=== PATIENT | female | born 1945 | race Caucasian/White ===

== ENCOUNTER → 2018-02-03 13:14 | Outpatient (CLI) | payer BC, SELFPAY | PROVIDERS: PCP Internal Medicine; Visit Provider Internal Medicine | DX: M85.851 Other specified disorders of bone density and structure, right thigh (principal); Z82.62 Family history of osteoporosis | CPT/HCPCS: 77080 ==

== ENCOUNTER → 2019-03-28 15:09 | Outpatient (ROUT) | payer BC, SELFPAY ==
[2019-03-28 16:46] LABS: BUN Creatinine Ratio 23.3 (6-22); Blood Urea Nitrogen 21 mg/dL (7-17); Calcium 9.8 mg/dL (8.4-10.2); Carbon Dioxide 24 mmol/L (22-32); Chloride 107 mmol/L (98-107); Cholesterol 286 mg/dL (140-199); Estimated Glomerular Filt Rate > 60.0 mL/min (>60); Glucose 92 mg/dL (80-110); HDL Cholesterol 44 mg/dL (40-60); HEMOLYSIS < 15 (0-50); LDL Cholesterol Calculated 205 mg/dL (<100); Potassium 4.2 mmol/L (3.4-5.1); Sodium 140 mmol/L (137-145); Triglycerides 183 mg/dL (35-150)
[2019-03-28 16:51] LABS: TSH w/ Reflex to FT4 3.03 uIU/mL (0.47-4.68)
== END ==
PROVIDERS: PCP Internal Medicine; Visit Provider Internal Medicine
DX: E78.2 Mixed hyperlipidemia (principal); I48.91 Unspecified atrial fibrillation
CPT/HCPCS: 80048; 80061; 84443

== ENCOUNTER → 2020-04-02 14:43 | Outpatient (ROUT) | payer BC, SELFPAY ==
[2020-04-02 15:19] LABS: PTT Partial Thromboplastin Tim 29 SECONDS (26.4-36.2)
[2020-04-02 15:20] LABS: Add Manual Diff / Slide Review NO; Basophils Absolute Auto 0 /uL (0-100); Basophils Percent Auto 0.6 % (0-2); Eosinophils Absolute Auto 200 /uL (0-450); Eosinophils Percent Auto 2.9 % (2-4); Hemoglobin 13.8 g/dL (12.0-16.0); Lymphocytes Absolute Auto 1200 /uL (1100-4500); Lymphocytes Percent Auto 17.3 % (25-40); Mean Corpuscular HGB Conc 34.5 % (30-36); Mean Corpuscular Hemoglobin 33.9 PG (26-34); Mean Corpuscular Volume 98.3 fL (80-100); Monocytes Absolute Auto 600 /uL (0-900); Monocytes Percent Auto 9.4 % (3-14); Neutrophils Absolute Auto 4800 /uL (1500-7000); Neutrophils Percent Auto 69.8 % (50-75); Platelet Count 226 X10^3/uL (150-400); Red Blood Cell Count 4.07 X10^6/uL (4.0-5.2); Red Cell Distribution Width 12.5 % (11.6-14.8); White Blood Cell Count 6.9 X10^3/uL (4.5-11.0)
[2020-04-02 17:01] LABS: Alanine Aminotransferase 23 IU/L (<35); Albumin Globulin Ratio 1.4 (1.0-2.8); Alkaline Phosphatase 68 U/L (38-126); Aspartate Aminotransferase 29 IU/L (14-36); BUN Creatinine Ratio 26.2 (6-22); Bilirubin Total 0.7 mg/dL (0.2-1.3); Blood Urea Nitrogen 22 mg/dL (7-17); Calcium 9.5 mg/dL (8.4-10.2); Carbon Dioxide 29 mmol/L (22-32); Chloride 105 mmol/L (98-107); Cholesterol 234 mg/dL (140-199); Estimated Glomerular Filt Rate > 60.0 mL/min (>60); Globulin 2.9 g/dL (1.7-4.1); Glucose 83 mg/dL (80-110); HDL Cholesterol 45 mg/dL (40-60); HEMOLYSIS < 15 (0-50); LDL Cholesterol Calculated 149 mg/dL (<100); Potassium 4.7 mmol/L (3.4-5.1); Sodium 138 mmol/L (137-145); Total Protein 6.9 g/dL (6.3-8.2); Triglycerides 199 mg/dL (35-150)
[2020-04-02 17:20] LABS: TSH w/ Reflex to FT4 2.72 uIU/mL (0.47-4.68)
== END ==
PROVIDERS: PCP Internal Medicine; Visit Provider Internal Medicine
DX: I48.0 Paroxysmal atrial fibrillation (principal); E78.2 Mixed hyperlipidemia
CPT/HCPCS: 80053; 80061; 84443; 85025; 85610; 85730

== ENCOUNTER → 2020-05-26 14:03 | Outpatient (CLI) | payer BC, SELFPAY ==
[2020-05-26 14:21] LABS: COVID19 -Nasal RAPID POSITIVE (Negative)
== END ==
PROVIDERS: PCP Internal Medicine; Visit Provider Student in an Organized Health Care Education/Training Program
DX: Z20.822 Contact with and (suspected) exposure to COVID-19 (principal)
CPT/HCPCS: 87635

== ENCOUNTER 2021-07-07 14:29 | Emergency (ER) | payer BC, SELFPAY ==
[2021-07-07 14:58] VITALS: BP 149/67; PULSE 69; RESP 18; TEMP 36.6; O2SAT 98; BMI 26.9
--- NOTE | 2021-07-07 15:03 | DI.RAD.S_ITS ---
PROCEDURE: XR SHOULDER RT MIN 2V INDICATIONS: fall TECHNIQUE: 2 views of the shoulder were acquired. COMPARISON: None. FINDINGS: Bones: Diffuse osteopenia. There is a moderately comminuted, impacted fracture of the right proximal humerus at the level of the surgical neck. No definite intra-articular extension. Acromioclavicular interval and coracoclavicular intervals are maintained. Degenerative changes of the acromioclavicular joint. Soft tissues: No suspicious soft tissue calcifications. IMPRESSION: Moderately comminuted, impacted fracture of the right proximal humerus at the level of the surgical neck. Dictated by: Jarret Malone M.D. on 07/07/2021 at 16:23 Approved by: Jarret Malone M.D. on 07/07/2021 at 16:24
--- NOTE | 2021-07-07 15:04 | DI.RAD.S_ITS ---
PROCEDURE: XR KNEE RT 3V INDICATIONS: fall TECHNIQUE: 3 views of the knee were acquired. COMPARISON: None. FINDINGS: Bones: No fractures or dislocations. No suspicious bony lesions. Soft tissues: No joint effusion. No suspicious soft tissue calcifications. IMPRESSION: Right knee without acute fracture or dislocation. If there is persistent clinical concern for occult fracture given adequate mechanism of injury, consider repeat imaging in 10-14 days. Dictated by: Jarret Malone M.D. on 07/07/2021 at 16:26 Approved by: Jarret Malone M.D. on 07/07/2021 at 16:27
[2021-07-07 16:55] VITALS: PULSE 62; O2SAT 100
[2021-07-07 16:56] VITALS: BP 166/72; PULSE 62; O2SAT 100
[2021-07-07 17:00] VITALS: BP 163/74; PULSE 65; O2SAT 100
--- NOTE | 2021-07-07 17:24 | DI.CT.S_ITS ---
PROCEDURE: CT HEAD/BRAIN WO CON INDICATIONS: fall, head injury on thinners TECHNIQUE: Noncontrast 4.5 mm thick angled axial sections acquired from the foramen magnum to the vertex, with coronal and sagittal reformats. For radiation dose reduction, the following was used: automated exposure control, adjustment of mA and/or kV according to patient size. COMPARISON: None. FINDINGS: Image quality: Excellent. CSF spaces: Basal cisterns are patent. No extra-axial fluid collections. The ventricles are symmetric in size and shape. Brain: No intracranial bleeds or masses. There is cerebral volume loss for age, with resultant ventricular and sulcal prominence. There are periventricular and deep white matter chronic small vessel ischemic changes. There is intracranial internal carotid artery atherosclerosis. Skull and face: Mild right frontal scalp hematoma can be seen, as on series 2, image 21, without an associated fracture. Calvarium and visualized facial bones appear intact, without suspicious lesions. Sinuses: Visualized sinuses and mastoids are clear. IMPRESSION: Mild right frontal scalp hematoma, without an associated fracture. No acute intracranial hemorrhage is seen. No acute intracranial process is seen. Dictated by: Álvaro Mendoza M.D. on 07/07/2021 at 16:45 Approved by: Álvaro Mendoza M.D. on 07/07/2021 at 16:46
--- NOTE | 2021-07-07 17:46 | ED_ITS ---
HPI - Fall General Chief Complaint: Fall Stated Complaint: Fell and injured rt shoulder/head- on thinners Time Seen by Provider: 07/07/21 15:24 Source: patient and family Mode of arrival: Wheelchair History of Present Illness HPI Narrative: 76F nonsmoker with history of AFib on anticoagulation and osteopenia is incredibly hard of hearing and presents with family in the chief complaint of a ground level fall resulting in right shoulder injury. She was in her normal state of health and denies any dizziness, weakness or lightheadedness. She was at a local [facility] and admits that she was quite excited to show a friend some plants or suarez and misjudged her step which caused her to fall onto her right shoulder and bump her head. She denies any loss of consciousness, nausea, vomiting or neurologic symptoms such as blurred vision or extremity numbness, tingling or weakness. She has full recall of the event. She has extensive pain in her right shoulder with limited range of motion. She is activated as a modified trauma given fall, head injury on blood thinners as well as suspected injury and age greater than 65. Related Data Home Medications Medication Instructions Recorded Confirmed diltiazem HCl 60 mg tablet 60 mg PO DAILY PRN tab 07/08/21 07/08/21 ginkgo biloba leaf extract 120 mg 120 mg PO DAILY 07/08/21 07/08/21 capsule nitrofurantoin macrocrystal 100 mg 100 mg PO DAILY cap 07/08/21 07/08/21 capsule pravastatin 20 mg tablet 20 mg PO DAILY tab 07/08/21 07/08/21 warfarin 5 mg tablet 5 mg PO DAILY tab 07/08/21 07/08/21 Previous Rx's Medication Instructions Recorded mupirocin 2 % topical ointment 1 applic TOPICAL TID #30 g 01/26/20 triamcinolone acetonide 0.1 % 1 applic TOPICAL TID #80 g 01/26/20 topical cream ondansetron 4 mg disintegrating 4 mg PO TID-QID PRN #10 tab 07/07/21 tablet oxycodone 5 mg tablet 5 mg PO Q4-6H PRN #20 tab 07/07/21 diltiazem HCl 120 mg 120 mg PO DAILY #90 cap 07/08/21 capsule,extended release 24 hr Allergies Allergy/AdvReac Type Severity Reaction Status Date / Time Sulfa (Sulfonamide Allergy Unknown Verified 07/08/21 08:16 Antibiotics) [SULFA (SULFONAMIDE ANTIBIOTICS)] Review of Systems Review of Systems Narrative: GENERAL: See HPI HEENT: Denies sinus pain, ear pain, sore throat, difficulty swallowing, dizziness. RESPIRATORY: Denies dyspnea, cough, wheezing, hemoptysis, sputum. CARDIOVASCULAR: Denies chest pain, palpitations, orthopnea, edema, GASTROINTESTINAL: Denies nausea, vomiting, abdominal pain, diarrhea, constipation, melena. : Denies dysuria, frequency, incontinence, hematuria, urinary retention. MUSCULOSKELETAL: See HPI SKIN: Denies rash, skin lesions, or other NEUROLOGIC: Denies weakness, headache, numbness, change in speech, confusion, seizures, incoordination. PSYCHIATRIC: No concerning psychosocial issues. 12 point review of systems is negative except for those stated above Patient History Medical History Cataracts, bilateral (~2016) Chicken pox (~1949) Chronic anticoagulation Depression (~1965) Endometriosis (~1973) Hearing loss (~1996) Heavy menstrual period (~1958) Measles (~1949) Mixed hyperlipidemia Osteopenia Painful menstrual periods (~1958) Paroxysmal atrial fibrillation Seizures (~1996) Wears glasses Surgical History Anesthesia History of dilatation and curettage (~1973) History of partial hysterectomy Family History Father History of heart disease Dementia Mother Diabetes mellitus Hyperlipidemia Hypertension Dementia Arthritis Sister GERD (gastroesophageal reflux disease) Diabetes mellitus History of heart disease Hypertension S/P ankle joint replacement S/P knee replacement Grandfather Stroke Grandmother Diabetes mellitus Grandfather History of heart disease Grandmother Stroke Dementia Blind Family/Other Osteoporosis Autoimmune disease Rheumatoid arthritis Fibromyalgia Lupus Social History details: (Dior) Smoking Status: Never smoker Smoking Status: Never smoker Substance Use Type: does not use Exam Narrative Exam Narrative: GENERAL: [76] year old patient appears stated age. Well-developed patient, in mild distress. GCS 15 HEAD: Hematoma on right forehead, no evidence of external bleeding or wound which will require repair, no evidence of depressed skull fracture EYES: Pupils equal round and reactive. Extraocular motions intact. No scleral icterus. No injection or drainage. ENT: Nose without bleeding, purulent drainage. Throat without erythema, tonsillar hypertrophy or exudate. Airway patent. NECK: Trachea midline. Non tender CARDIOVASCULAR: Regular rate and rhythm without murmurs, gallops, or rubs. RESPIRATORY: Clear to auscultation. Breath sounds equal bilaterally. No wheezes, rales, or rhonchi. GASTROINTESTINAL: Abdomen soft, non-tender, nondistended. EXTREMITIES: Pain and swelling at the right shoulder with deformity consistent with fracture, closed, isolated and neurovascularly intact, no evidence of wrist drop BACK: Nontender without deformity or crepitance. No flank tenderness. NEURO: AOx3. SKIN: No rash or erythema of visible areas Initial Vital Signs Initial Vital Signs: Vital Signs Temperature 97.9 F 07/07/21 14:58 Pulse Rate 69 07/07/21 14:58 Respiratory Rate 18 07/07/21 14:58 Blood Pressure 149/67 H 07/07/21 14:58 Pulse Oximetry 98 07/07/21 14:58 Procedures Orthopedic Splinting/Casting Injury #1: Side: right Upper Extremity Injury Location: shoulder Upper Extremity Immobilizer: sling/shoulder immobilizer and sugar tong splint (premade Coaptation) Course Orders Ordered: Discontinued Medications Hydrocodone Bitart/Acetaminophen (Hydrocodone/Acet 5/325 Tablet) 1 tab PO NOW ONE Stop: 07/07/21 17:59 Last Admin: 07/07/21 18:03 Dose: 1 tab Documented by: IRIS Consultations Consultation #1: Discussed with on-call orthopedist, images have been reviewed, recommends splint, sling, pain control and follow-up Vital Signs Vital signs: Vital Signs - 8 hr 07/07/21 14:58 07/07/21 16:55 07/07/21 16:56 Temperature 97.9 F Pulse Rate 69 62 62 Respiratory Rate 18 Blood Pressure 149/67 H 166/72 H Pulse Oximetry 98 100 100 07/07/21 17:00 07/07/21 18:33 Temperature Pulse Rate 65 62 Respiratory Rate Blood Pressure 163/74 H Pulse Oximetry 100 100 MDM - Fall Imaging Data CT scan - head: Radiologist's Impression: [address] [address] [address] Scan Report Signed Patient: Dior Ji MR#: [id number] : 1945 Acct:[id number] Age/Sex: 76 / F Date of Service: 07/07/21 Loc: ED Accession Number: [id number] ?? Procedure: CT head/brain wo con Ordering Provider: Ajit Babcock D.O. PROCEDURE:? CT HEAD/BRAIN WO CON ? INDICATIONS:? fall, head injury on thinners ? TECHNIQUE:? Noncontrast 4.5 mm thick angled axial sections acquired from the foramen magnum to the vertex, with coronal and sagittal reformats.? For radiation dose reduction, the following was used:? automated exposure control, adjustment of mA and/or kV according to patient size.? ? COMPARISON:? None. ? FINDINGS:? Image quality:? Excellent.? ? CSF spaces:? Basal cisterns are patent.? No extra-axial fluid collections.? The ventricles are symmetric in size and shape.? ? Brain:? No intracranial bleeds or masses.? There is cerebral volume loss for age, with resultant ventricular and sulcal prominence.? There are periventricular and deep white matter chronic small vessel ischemic changes.? There is intracranial internal carotid artery atherosclerosis.? ? Skull and face:? Mild right frontal scalp hematoma can be seen, as on series 2, image 21, without an associated fracture.? Calvarium and visualized facial bones appear intact, without suspicious lesions.? ? Sinuses:? Visualized sinuses and mastoids are clear.? ? IMPRESSION:? Mild right frontal scalp hematoma, without an associated fracture.? ? No acute intracranial hemorrhage is seen.? ? No acute intracranial process is seen.? ? ? Dictated by: Álvaro Mendoza M.D. on 07/07/2021 at 16:45 ? ? Approved by: Álvaro Mendoza M.D. on 07/07/2021 at 16:46 ? Extremity x-ray #1: Radiologist's Impression: Launch?[address] [address] XRay Report Signed Patient: Dior Ji MR#: [id number] : 1945 Acct:[id number] Age/Sex: 76 / F Date of Service: 07/07/21 Loc: ED Accession Number: [id number] ?? Procedure: XR shoulder RT min 2V Ordering Provider: Ajit Babcock D.O. PROCEDURE:? XR SHOULDER RT MIN 2V ? INDICATIONS:? fall ? TECHNIQUE:? 2 views of the shoulder were acquired.? ? COMPARISON:? None. ? FINDINGS:? ? Bones:? Diffuse osteopenia.? There is a moderately comminuted, impacted fracture of the right proximal humerus at the level of the surgical neck.? No definite intra- articular extension.? Acromioclavicular interval and coracoclavicular intervals are maintained.? Degenerative changes of the acromioclavicular joint. ? Soft tissues:? No suspicious soft tissue calcifications.? ? IMPRESSION:? Moderately comminuted, impacted fracture of the right proximal humerus at the level of the surgical neck. ? ? Dictated by: Jarret Malone M.D. on 07/07/2021 at 16:23 ? ? Approved by: Jarret Malone M.D. on 07/07/2021 at 16:24 ? Extremity x-ray #2: Radiologist's Impression: [place] [address] XRay Report Signed Patient: Dior Ji MR#: [id number] : 1945 Acct:[id number] Age/Sex: 76 / F Date of Service: 07/07/21 Loc: ED Accession Number: [id number] ?? Procedure: XR knee RT 3V Ordering Provider: Ajit Babcock D.O. PROCEDURE:? XR KNEE RT 3V ? INDICATIONS:? fall ? TECHNIQUE:? 3 views of the knee were acquired.? ? COMPARISON:? None. ? FINDINGS:? ? Bones:? No fractures or dislocations.? No suspicious bony lesions.? ? Soft tissues:? No joint effusion.? No suspicious soft tissue calcifications.? ? ? IMPRESSION:? Right knee without acute fracture or dislocation. ? If there is persistent clinical concern for occult fracture given adequate mechanism of injury, consider repeat imaging in 10-14 days. ? ? Dictated by: Jarret Malone M.D. on 07/07/2021 at 16:26 ? ? Approved by: Jarret Malone M.D. on 07/07/2021 at 16:27 ? Discharge Plan Departure Patient Disposition: Home Clinical Impression: Fracture of proximal end of humerus Qualifiers: Encounter type: subsequent encounter Fracture type: closed Fracture morphology: other fracture Fracture alignment: displaced Laterality: right Fracture healing: with routine healing Qualified Code(s): S42.291D - Other displaced fracture of upper end of right humerus, subsequent encounter for fracture with routine healing Contusion of knee Qualifiers: Encounter type: initial encounter Laterality: right Qualified Code(s): S80.01XA - Contusion of right knee, initial encounter Contusion of scalp Qualifiers: Encounter type: initial encounter Qualified Code(s): S00.03XA - Contusion of scalp, initial encounter Instructions: How to Prevent Falls Activity Restrictions/Additional Instructions: *You have been diagnosed with [comminuted right proximal humerus fracture. As we discussed this typically is not a surgical injury. Also, your head CT is unremarkable and your knee x-ray shows no evidence of fracture or dislocation *What to do: *Please continue to take your regular medications as directed. [ x] New medication prescriptions sent to your pharmacy: [[facility] ] [ ] New medication written as a paper prescription [x] Tylenol and occasional Motrin for pain *Please follow up with [ Renetta] of [facility] in 2-3 days, call for an appointment. Let them know you were seen in the Emergency Department and that we ask that you be seen in follow up. We will electronically transmit a record of today's note if your PCP is in our system *Return to Emergency Department if you should have any new, worsening or concerning symptoms, such as [worsening pain, significant swelling, cold extremities, numbness, tingling, weakness or other bothersome symptoms Splint Care: Keep splint clean and dry. Elevated affected body part to decrease swelling. OK to use ice pack on the affected body part. Use for 15-20 minutes each time, for 5-6x per day. If you develop worsening pain, numbness, tingling, discoloration of the affected body part, loosen the splint by loosening the HELGA wrap, and either see your doctor for an urgent re-assessment, or return to the Emergency Department. Return to the Emergency Department for any new or worsening symptoms. You have been prescribed a short course of narcotic medications. These are potentially dangerous and addictive medications that should be used carefully. While on these medications you cannot drive or operate heavy machinery. Additionally, you cannot sign legal documents or perform any duties such as this. Many people get constipated on narcotic medications so it would be advisable to discuss stool softeners with the pharmacist when you picking supervisor your p rescription. Please understand that we cannot provide further refills of narcotics or controlled substances through the ED and your pain management will need to be through your Primary Care Provider Prescriptions: New ondansetron 4 mg tablet,disintegrating 4 mg PO TID-QID PRN (Reason: nausea and vomiting) Qty: 10 0RF oxycodone 5 mg tablet 5 mg PO Q4-6H PRN (Reason: pain) Qty: 20 0RF No Action mupirocin 2 % ointment 1 applic topical TID Qty: 30 0RF triamcinolone acetonide 0.1 % cream 1 applic topical TID Qty: 80 0RF pravastatin 20 mg tablet 20 mg PO DAILY 0RF diltiazem HCl 60 mg tablet 60 mg PO DAILY PRN0RF warfarin 5 mg tablet 5 mg PO DAILY 0RF Rx Instructions: 7.5 mg on Tuesday and 5 mg all other days. nitrofurantoin macrocrystal 100 mg capsule 100 mg PO DAILY 0RF Label Comments: take 1 capsule by mouth once daily ginkgo biloba leaf extract 120 mg capsule 120 mg PO DAILY 0RF Rx Instructions: give with meal/snack diltiazem HCl 120 mg capsule,extended release 24hr 120 mg PO DAILY Qty: 90 3RF Referrals: Johnathan Maddox MD [Primary Care Provider] - Chang Jackson MD [Physician] -
[2021-07-07] MEDS: HYDROCODONE/ACET 5/325 TABLET 1 TAB PO (18:03)
[2021-07-07 18:33] VITALS: PULSE 62; O2SAT 100
== END 2021-07-07 19:27 | disposition home or self-care (01) ==
PROVIDERS: Emergency Provider Emergency Medicine; PCP Internal Medicine
DX: S42.291A Other displaced fracture of upper end of right humerus, initial encounter for closed fracture (principal); S80.01XA Contusion of right knee, initial encounter; S00.03XA Contusion of scalp, initial encounter; S09.90XA Unspecified injury of head, initial encounter; Z79.01 Long term (current) use of anticoagulants; W18.30XA Fall on same level, unspecified, initial encounter
CPT/HCPCS: 70450; 73030; 73562; 99284

== ENCOUNTER → 2021-07-08 09:39 | Outpatient (CLI) | payer BC, SELFPAY ==
[2021-07-08 10:51] LABS: Mean Corpuscular Hemoglobin 34.5 PG (26-34); Mean Corpuscular Volume 95.8 fL (80-100); Platelet Count 227 X10^3/uL (150-400); Red Blood Cell Count 4.07 X10^6/uL (4.0-5.2); Red Cell Distribution Width 12.8 % (11.6-14.8); White Blood Cell Count 9.6 X10^3/uL (4.5-11.0)
[2021-07-08 11:19] LABS: Alanine Aminotransferase 21 IU/L (<35); Albumin 4.4 g/dL (3.5-5.0); Albumin Globulin Ratio 1.6 (1.0-2.8); Alkaline Phosphatase 65 U/L (38-126); Aspartate Aminotransferase 32 IU/L (14-36); BUN Creatinine Ratio 23.8 (6-22); Bilirubin Total 1.1 mg/dL (0.2-1.3); Blood Urea Nitrogen 25 mg/dL (7-17); Calcium 9.5 mg/dL (8.4-10.2); Carbon Dioxide 26 mmol/L (22-32); Chloride 104 mmol/L (98-107); Cholesterol 231 mg/dL (140-199); Estimated Glomerular Filt Rate 55 mL/min (>60); Globulin 2.7 g/dL (1.7-4.1); Glucose 95 mg/dL (80-110); HDL Cholesterol 61 mg/dL (40-60); HEMOLYSIS < 15 (0-50); LDL Cholesterol Calculated 147 mg/dL (<100); Sodium 137 mmol/L (137-145); Total Protein 7.1 g/dL (6.3-8.2); Triglycerides 114 mg/dL (35-150)
[2021-07-08 11:50] LABS: TSH w/ Reflex to FT4 2.27 uIU/mL (0.47-4.68)
== END ==
PROVIDERS: PCP Internal Medicine; Referring Provider Internal Medicine; Visit Provider Internal Medicine
DX: E78.2 Mixed hyperlipidemia (principal); I48.0 Paroxysmal atrial fibrillation
CPT/HCPCS: 36415; 80053; 80061; 84443; 85027

== ENCOUNTER 2021-07-13 17:48 | Emergency (ER) | payer BC, SELFPAY ==
[2021-07-13 18:39] VITALS: BP 144/65; PULSE 78; RESP 18; TEMP 37; O2SAT 100; BMI 26.5
--- NOTE | 2021-07-13 21:02 | ED.UPPEXIN ---
HPI - Extremity Injury (Upper) General Chief Complaint: Extremity Injury, Upper Stated Complaint: BROKEN RIGHT ARM SWELLING PAIN Time Seen by Provider: 07/13/21 18:11 Source: patient and family Mode of arrival: Wheelchair History of Present Illness HPI narrative: 76F nonsmoker with history of AFib on anticoagulation and osteopenia is incredibly hard of hearing and presents with family in the chief complaint of swelling in her right hand, she had been told after recent visit for a fall resulting in a proximal humerus fracture to present if swelling is noted. There has been some readjustment of her signing and on arrival her hand is noted to be swollen and hand is exposed from the sling which is supporting the arm only at the distal forearm, allowing a bit of wrist drop. She denies any significant pain, fever chills, she denies any numbness, tingling or weakness in her fingers. Related Data Home Medications Medication Instructions Recorded Confirmed diltiazem HCl 60 mg tablet 60 mg PO DAILY PRN tab 07/08/21 07/08/21 ginkgo biloba leaf extract 120 mg 120 mg PO DAILY 07/08/21 07/08/21 capsule nitrofurantoin macrocrystal 100 mg 100 mg PO DAILY cap 07/08/21 07/08/21 capsule pravastatin 20 mg tablet 20 mg PO DAILY tab 07/08/21 07/08/21 warfarin 5 mg tablet 5 mg PO DAILY tab 07/08/21 07/08/21 Previous Rx's Medication Instructions Recorded mupirocin 2 % topical ointment 1 applic TOPICAL TID #30 g 01/26/20 triamcinolone acetonide 0.1 % 1 applic TOPICAL TID #80 g 01/26/20 topical cream ondansetron 4 mg disintegrating 4 mg PO TID-QID PRN #10 tab 07/07/21 tablet oxycodone 5 mg tablet 5 mg PO Q4-6H PRN #20 tab 07/07/21 diltiazem HCl 120 mg 120 mg PO DAILY #90 cap 07/08/21 capsule,extended release 24 hr Allergies Allergy/AdvReac Type Severity Reaction Status Date / Time Sulfa (Sulfonamide Allergy Unknown Verified 07/13/21 18:42 Antibiotics) [SULFA (SULFONAMIDE ANTIBIOTICS)] Review of Systems Review of Systems Narrative: GENERAL: Denies chills, fatigue, malaise, fever, sweats. HEENT: Denies sinus pain, ear pain, sore throat, difficulty swallowing, dizziness. RESPIRATORY: Denies dyspnea, cough, wheezing, hemoptysis, sputum. CARDIOVASCULAR: Denies chest pain, palpitations, orthopnea, edema, GASTROINTESTINAL: Denies nausea, vomiting, abdominal pain, diarrhea, constipation, melena. : Denies dysuria, frequency, incontinence, hematuria, urinary retention. MUSCULOSKELETAL: See HPI SKIN: Denies rash, skin lesions, or other NEUROLOGIC: Denies weakness, headache, numbness, change in speech, confusion, seizures, incoordination. PSYCHIATRIC: No concerning psychosocial issues. 12 point review of systems is negative except for those stated above Patient History Medical History Cataracts, bilateral (~2016) Chicken pox (~1949) Chronic anticoagulation Depression (~1965) Endometriosis (~1973) Hearing loss (~1996) Heavy menstrual period (~1958) Measles (~1949) Mixed hyperlipidemia Osteopenia Painful menstrual periods (~1958) Paroxysmal atrial fibrillation Seizures (~1996) Wears glasses Surgical History Anesthesia History of dilatation and curettage (~1973) History of partial hysterectomy Family History Father History of heart disease Dementia Mother Diabetes mellitus Hyperlipidemia Hypertension Dementia Arthritis Sister GERD (gastroesophageal reflux disease) Diabetes mellitus History of heart disease Hypertension S/P ankle joint replacement S/P knee replacement Grandfather Stroke Grandmother Diabetes mellitus Grandfather History of heart disease Grandmother Stroke Dementia Blind Family/Other Osteoporosis Autoimmune disease Rheumatoid arthritis Fibromyalgia Lupus Social History details: (Dior) Smoking Status: Never smoker Smoking Status: Never smoker Substance Use Type: does not use Exam Narrative Exam Narrative: GENERAL: [76] year old patient appears stated age. Well-developed patient, in mild distress. HEAD: Atraumatic. Normocephalic. EYES: Pupils equal round and reactive. Extraocular motions intact. No scleral icterus. No injection or drainage. ENT: Nose without bleeding, purulent drainage. Throat without erythema, tonsillar hypertrophy or exudate. Airway patent. NECK: Trachea midline. Non tender CARDIOVASCULAR: Regular rate and rhythm without murmurs, gallops, or rubs. RESPIRATORY: Clear to auscultation. Breath sounds equal bilaterally. No wheezes, rales, or rhonchi. GASTROINTESTINAL: Abdomen soft, non-tender, nondistended. EXTREMITIES: There is some swelling of the hand and forearm without discoloration, tenderness, warmth or induration, most consistent with dependent edema. Full strength with wrist extension, sensation intact, no evidence of wrist drop or vascular occlusion. Pain on palpation of right shoulder BACK: Nontender without deformity or crepitance. No flank tenderness. NEURO: AOx3. SKIN: No rash or erythema of visible areas Initial Vital Signs Initial Vital Signs: Vital Signs Temperature 98.6 F 07/13/21 18:39 Pulse Rate 78 07/13/21 18:39 Respiratory Rate 18 07/13/21 18:39 Blood Pressure 144/65 H 07/13/21 18:39 Pulse Oximetry 100 07/13/21 18:39 Procedures Orthopedic Splinting/Casting Injury #1: Side: right Upper Extremity Injury Location: shoulder Upper Extremity Immobilizer: sling/shoulder immobilizer Post splinting neuro exam: intact Post splinting vascular exam: intact Placed by: Nursing Course Course Course Narrative: Nursing swabbed out sling to a larger size to better accommodate Vital Signs Vital signs: Vital Signs - 8 hr 07/13/21 18:39 Temperature 98.6 F Pulse Rate 78 Respiratory Rate 18 Blood Pressure 144/65 H Pulse Oximetry 100 MDM - Extremity Injury (Upper) MDM Narrative Medical decision making narrative: Patient with known recent proximal humerus fracture presents with painless swelling of her right hand, she is following discharge instructions and return precautions. There was some miscommunication at time of discharge and they have yet to follow-up with orthopedics because they were told this was unlikely to be surgical case. I reiterated that follow-up is important. She does have swelling in her hand but has not had appropriate positioning, DVT or infection considered but thought unlikely given lack of pain, redness or warmth. Sensation, strength and cap refill are intact. Splint Tom eyes, return precautions given and questions answered to their apparent satisfaction Discharge Plan Departure Patient Disposition: Home Clinical Impression: Dependent edema, Fracture of proximal end of humerus Instructions: Edema Activity Restrictions/Additional Instructions: *You have been diagnosed with [swelling and right hand due to dependent edema from fracture, this is likely due to a poorly fitting sling, we have adjusted this 4 year *What to do: *Please continue to take your regular medications as directed. *Please follow up with Dr. Jackson at [facility] in 2-3 days, call for an appointment. Let them know you were seen in the Emergency Department and that we ask that you be seen in follow up. We will electronically transmit a record of today's note *Return to Emergency Department if you should have any new, worsening or concerning symptoms Prescriptions: No Action mupirocin 2 % ointment 1 applic topical TID Qty: 30 0RF triamcinolone acetonide 0.1 % cream 1 applic topical TID Qty: 80 0RF pravastatin 20 mg tablet 20 mg PO DAILY 0RF diltiazem HCl 60 mg tablet 60 mg PO DAILY PRN0RF warfarin 5 mg tablet 5 mg PO DAILY 0RF Rx Instructions: 7.5 mg on Tuesday and 5 mg all other days. nitrofurantoin macrocrystal 100 mg capsule 100 mg PO DAILY 0RF Label Comments: take 1 capsule by mouth once daily ginkgo biloba leaf extract 120 mg capsule 120 mg PO DAILY 0RF Rx Instructions: give with meal/snack diltiazem HCl 120 mg capsule,extended release 24hr 120 mg PO DAILY Qty: 90 3RF ondansetron 4 mg tablet,disintegrating 4 mg PO TID-QID PRN (Reason: nausea and vomiting) Qty: 10 0RF oxycodone 5 mg tablet 5 mg PO Q4-6H PRN (Reason: pain) Qty: 20 0RF Referrals: Johnathan Maddox MD [Primary Care Provider] - Chang Jackson MD [Physician] - Visit Report Forms: Patient Portal/API
== END 2021-07-13 21:50 | disposition home or self-care (01) ==
PROVIDERS: Emergency Provider Emergency Medicine; PCP Internal Medicine
DX: R60.0 Localized edema (principal); S42.201A Unspecified fracture of upper end of right humerus, initial encounter for closed fracture; W19.XXXA Unspecified fall, initial encounter
CPT/HCPCS: 99281; 99282

== ENCOUNTER → 2022-01-21 10:57 | Outpatient (CLI) | payer BC, SELFPAY ==
[2022-01-21 12:17] LABS: Hematocrit 40.4 % (36-46); Hemoglobin 14.1 g/dL (12.0-16.0); Mean Corpuscular HGB Conc 34.9 % (30-36); Mean Corpuscular Hemoglobin 33.4 PG (26-34); Mean Corpuscular Volume 95.7 fL (80-100); Platelet Count 236 X10^3/uL (150-400); Red Blood Cell Count 4.22 X10^6/uL (4.0-5.2); Red Cell Distribution Width 12.9 % (11.6-14.8); White Blood Cell Count 6.8 X10^3/uL (4.5-11.0)
[2022-01-21 12:54] LABS: Alanine Aminotransferase 29 IU/L (<35); Albumin 4.3 g/dL (3.5-5.0); Albumin Globulin Ratio 1.5 (1.0-2.8); Alkaline Phosphatase 71 U/L (38-126); Aspartate Aminotransferase 32 IU/L (14-36); Bilirubin Total 0.8 mg/dL (0.2-1.3); Blood Urea Nitrogen 18 mg/dL (7-17); Calcium 9.8 mg/dL (8.4-10.2); Carbon Dioxide 29 mmol/L (22-32); Chloride 104 mmol/L (98-107); Estimated Glomerular Filt Rate > 60 mL/min (>60); Globulin 2.8 g/dL (1.7-4.1); Glucose 89 mg/dL (80-110); HEMOLYSIS < 15 (0-50); Potassium 4.9 mmol/L (3.4-5.1); Sodium 141 mmol/L (137-145); Total Protein 7.1 g/dL (6.3-8.2)
== END ==
PROVIDERS: PCP Internal Medicine; Referring Provider Internal Medicine; Visit Provider Internal Medicine
DX: I48.0 Paroxysmal atrial fibrillation (principal); Z79.01 Long term (current) use of anticoagulants
CPT/HCPCS: 36415; 80053; 85027

== ENCOUNTER → 2022-02-15 10:35 | Outpatient (CLI) | payer BC, SELFPAY ==
[2022-02-16 12:13] LABS: Fecal Immunochemical Test Negative (Negative)
== END ==
PROVIDERS: PCP Internal Medicine; Referring Provider Internal Medicine; Visit Provider Internal Medicine
DX: Z12.11 Encounter for screening for malignant neoplasm of colon (principal)
CPT/HCPCS: 82274

== ENCOUNTER → 2023-01-24 09:13 | Outpatient (CLI) | payer BC, SELFPAY ==
[2023-01-24 10:49] LABS: Hematocrit 43.1 % (36-46)
[2023-01-24 11:12] LABS: Aspartate Aminotransferase 31 IU/L (14-36); Blood Urea Nitrogen 15 mg/dL (7-17); Calcium 10.1 mg/dL (8.4-10.2); Carbon Dioxide 27 mmol/L (22-32); Chloride 106 mmol/L (98-107); Cholesterol 216 mg/dL (140-199); Estimated Glomerular Filt Rate > 60 mL/min (>60); Glucose 91 mg/dL (80-110); HDL Cholesterol 48 mg/dL (40-60); HEMOLYSIS < 15 (0-50); LDL Cholesterol Calculated 134 mg/dL (<100); Sodium 139 mmol/L (137-145); Triglycerides 169 mg/dL (35-150)
== END ==
PROVIDERS: PCP Internal Medicine; Referring Provider Internal Medicine; Visit Provider Internal Medicine
DX: E78.2 Mixed hyperlipidemia (principal); I48.0 Paroxysmal atrial fibrillation; Z79.01 Long term (current) use of anticoagulants
CPT/HCPCS: 36415; 80048; 80061; 84450; 85014; 85018

== ENCOUNTER → 2023-02-04 11:00 | Outpatient (CLI) | payer BC, SELFPAY ==
[2023-02-08 14:07] LABS: Fecal Immunochemical Test Negative (Negative)
== END ==
PROVIDERS: PCP Internal Medicine; Referring Provider Internal Medicine; Visit Provider Internal Medicine
DX: Z12.11 Encounter for screening for malignant neoplasm of colon (principal)
CPT/HCPCS: 82274

== ENCOUNTER → 2023-02-15 09:56 | Outpatient (CLI) | payer BC, SELFPAY ==
--- NOTE | 2023-02-15 09:57 | DI.RAD.S_ITS ---
Bone Density Report Name: FABIAN INFANTE Age: 78 Sex: Female Ethnicity: White Date of : 1945 Indication: osteopenia; Referring Provider: ROBBIE CHANDRA Study: Bone densitometry was performed. Exam Date: February 15, 2023 Accession number: [id number] Bone Density: Region BMD T-score Z-score Classification AP Spine(L1-L4) 0.947 -0.9 1.7 Normal Femoral Neck (Left) 0.637 -1.9 0.3 Osteopenia Total Hip (Left) 0.820 -1.0 0.9 Normal Femoral Neck (Right) 0.569 -2.5 -0.3 Osteoporosis Total Hip (Right) 0.754 -1.5 0.4 Osteopenia Total Hip Mean 0.787 -1.3 0.7 Osteopenia World Health Organization criteria for BMD impression classify patients as: Normal (T-score at or above -1.0), Osteopenia (T-score between -1.0 and -2.5), or Osteoporosis (T-score at or below -2.5). 10-year Fracture Risk: FRAX not reported because: Some T-score for Spine Total or Hip Total or Femoral Neck at or below -2.5 Previous Exams: -- Region Exam Age BMD T-score BMD Change BMD Change Date g/cm2 vs Baseline vs Previous -- AP Spine (L1-L4) 02/15/2023 78 0.947 -0.9 -0.047 (-4.7%)# -0.023 (-2.3%)# 02/03/2018 73 0.969 -0.7 -0.024 (-2.4%)* -0.024 (-2.4%)* 01/02/2013 67 0.994 -0.5 Total Hip(Left) 02/15/2023 78 0.820 -1.0 -0.005 (-0.6%)# -0.042 (-4.8%)# 02/03/2018 73 0.861 -0.7 0.037 (4.5%)* 0.037 (4.5%)* 01/02/2013 67 0.824 -1.0 Total Hip(Right) 02/15/2023 78 0.754 -1.5 -0.008 (-1.0%)# 0.001 (0.2%)# 02/03/2018 73 0.753 -1.6 -0.009 (-1.2%) -0.009 (-1.2%) 01/02/2013 67 0.762 -1.5 -- *Denotes significance at 95% confidence level, LSC for AP Spine = 0.022 g/cm2, LSC for Total Hip = 0.027 g/cm2 # Denotes dissimilar scan types or analysis methods Impression: The patient has osteoporosis, based on the Right Femoral Neck T-score. No significant bone loss was observed. Discussion: INCREASED RISK OF FRACTURE. BONE DENSITY IS UNDESIRABLY LOW AT ONE OR MORE SKELETAL SITES, CONSISTENT WITH POSTMENOPAUSAL OSTEOPOROSIS. This patient's lowest T-score meets the World Health Organization's (WHO) criteria for osteoporosis at one or more sites (T-score -2.5 or below). In untreated patients, the risk of osteoporotic fracture increases approximately two-fold for each 1.0 SD decrease in T-score. Low bone density is not the only risk factor for fracture; also consider factors such as patient's age, frailty or poor health, risk of falling, risk of injury, previous osteoporotic fracture, family history of osteoporosis, cigarette smoking, low body weight, etc. Not everyone with low bone mineral density has osteoporosis; osteomalacia and other metabolic bone disorders should also be considered. Patients who have osteoporosis should be evaluated for specific diseases and conditions (secondary causes) that may cause or contribute to bone loss. The [place] [employer]ocr[employer] (AACE) and National Osteoporosis Foundation (NOF) recommend pharmacologic intervention for all postmenopausal women whose T-score is in this range. The patient should follow a healthful lifestyle (good nutrition with adequate calcium and vitamin D, and appropriate weight-bearing exercise). Follow-Up: Consider a repeat BMD and Vertebral Fracture Assessment (VFA) exam in 2 years or sooner if medically necessary, to reassess this patient's status. Reported by: CHRISTY PEÑA M.D. on 02/15/2023 10:48:00 AM.
== END ==
PROVIDERS: PCP Internal Medicine; Referring Provider Internal Medicine; Visit Provider Internal Medicine
DX: M81.0 Age-related osteoporosis without current pathological fracture (principal)
CPT/HCPCS: 77080

== ENCOUNTER → 2024-08-20 10:01 | Outpatient (CLI) | payer BC, SELFPAY ==
[2024-08-20 11:04] LABS: Hematocrit 42.4 % (36-46); Hemoglobin 14.7 g/dL (12.0-16.0); Mean Corpuscular HGB Conc 34.6 % (30-36); Mean Corpuscular Hemoglobin 34.0 PG (26-34); Mean Corpuscular Volume 98.2 fL (80-100); Platelet Count 214 X10^3/uL (150-400)
[2024-08-20 11:32] LABS: Alanine Aminotransferase 36 IU/L (<35); Albumin 4.4 g/dL (3.5-5.0); Albumin Globulin Ratio 1.8 (1.0-2.8); Alkaline Phosphatase 62 U/L (38-126); Blood Urea Nitrogen 20 mg/dL (7-17); Calcium 10.0 mg/dL (8.4-10.2); Carbon Dioxide 28 mmol/L (22-32); Chloride 104 mmol/L (98-107); Cholesterol 236 mg/dL (140-199); Estimated Glomerular Filt Rate 48 mL/min (>60); Globulin 2.4 g/dL (1.7-4.1); Glucose 88 mg/dL (70-99); HDL Cholesterol 58 mg/dL (40-60); HEMOLYSIS < 15 (0-50); Potassium 4.6 mmol/L (3.4-5.1); Sodium 139 mmol/L (137-145); Total Protein 6.8 g/dL (6.3-8.2); Triglycerides 136 mg/dL (35-150)
[2024-08-20 11:58] LABS: TSH w/ Reflex to FT4 5.09 uIU/mL (0.47-4.68)
[2024-08-20 12:26] LABS: Free T4, Direct Thyroxine 1.54 ng/dL (0.78-2.19)
== END ==
PROVIDERS: PCP Internal Medicine; Referring Provider Internal Medicine; Visit Provider Internal Medicine
DX: E78.2 Mixed hyperlipidemia (principal); I48.0 Paroxysmal atrial fibrillation
CPT/HCPCS: 36415; 80053; 80061; 84439; 84443; 85027

== ENCOUNTER → 2024-08-27 11:10 | Outpatient (CLI) | payer BC, SELFPAY | PROVIDERS: PCP Internal Medicine; Referring Provider Internal Medicine; Visit Provider Internal Medicine | DX: I48.0 Paroxysmal atrial fibrillation (principal); Z51.81 Encounter for therapeutic drug level monitoring; Z79.899 Other long term (current) drug therapy; R94.2 Abnormal results of pulmonary function studies | CPT/HCPCS: 94060; 94726; 94729 ==